=== PATIENT | female | born 1950 | race Caucasian/White ===

== ENCOUNTER 2019-11-27 15:25 | Outpatient (CLI) | payer OTHER, SELFPAY ==
--- NOTE | ~2019-11-27 | XR_ITS ---
EXAMINATION: XR ankle RT 2V DATE: 11/27/2019 15:54 INDICATION: Achilles tendinitis with tender bump at the right heel TECHNIQUE: Anteroposterior and lateral views of the right ankle were obtained. COMPARISON: None. FINDINGS: Alignment is normal. No fracture. Mild tibiotalar osteoarthritis. Moderate-sized retrocalcaneal spur. Soft tissue swelling at the calcaneal insertion of the distal Achilles tendon where there is an kenneth tional moderate-sized enthesophyte. No cortical erosions. No right ankle joint effusion. IMPRESSION: 1. Insertional enthesopathy and potentially and associated bursitis at the distal Achilles tendon wit h moderate sized Achilles calcaneal spur. Reviewed, dictated and finalized at location A. IMPRESSION: 1. Insertional enthesopathy and potentially and associated bursitis at the dist al Achilles tendon with moderate sized Achilles calcaneal spur.
== END 2019-11-27 15:26 | disposition home or self-care (01) ==
LOC: ANHIMG 15:36
PROVIDERS: PCP Emergency Medicine; Visit Provider Emergency Medicine
DX: M76.60 Achilles tendinitis, unspecified leg (principal)
CPT/HCPCS: 73600

== ENCOUNTER 2020-02-24 02:04 | Outpatient (CLI) | payer OTHER, SELFPAY ==
[2020-02-24 18:35] LABS: SARS-CoV-2 RNA PCR Negative
== END 2020-02-24 02:05 | disposition home or self-care (01) ==
LOC: ANHCOVIDDT 02:04
PROVIDERS: PCP Emergency Medicine; Visit Provider Orthopaedic Surgery
DX: Z01.812 Encounter for preprocedural laboratory examination (principal); Z20.828 Contact with and (suspected) exposure to other viral communicable diseases
CPT/HCPCS: 87635; C9803; U0003

== ENCOUNTER 2020-02-24 08:21 | Outpatient (CLI) | payer OTHER, SELFPAY ==
--- NOTE | 2020-02-24 08:22 | ECG_ITS ---
Measurements Intervals [place] Rate: 58 P: 74 GA: 200 QRS: 19 QRSD: 92 T: 30 QT: 418 QTc: 412 Interpretive Statements SINUS BRADYCARDIA LOW QRS VOLTAGE IN PRECORDIAL LEADS BORDERLINE ECG Electronically Signed On 02-24-2020 8:51:38 SUPERVISOR ASSEMBLY by Sachin Manriquez D.O.
== END 2020-02-24 08:22 | disposition home or self-care (01) ==
LOC: ANHSURGERY 08:22
PROVIDERS: PCP Emergency Medicine; Visit Provider Orthopaedic Surgery
DX: Z01.818 Encounter for other preprocedural examination (principal); I10 Essential (primary) hypertension; E55.9 Vitamin D deficiency, unspecified; E78.5 Hyperlipidemia, unspecified; R94.31 Abnormal electrocardiogram [ECG] [EKG]
CPT/HCPCS: 93005

== ENCOUNTER 2020-02-27 01:04 | Day surgery (SDC) | payer OTHER, SELFPAY ==
[2020-02-20 14:28] VITALS: BMI 32.8
[2020-02-27] VITALS (8 sets, daily range): BP systolic 115–153; BP diastolic 58–84; PULSE 56–75; RESP 13–20; TEMP 36.3; O2SAT 99–100
--- NOTE | ~2020-02-27 | XR_ITS ---
XR surgery orthopedic DATE: 02/27/2020 08:43 INDICATION: Right Achilles reconstruction TECHNIQUE: 2.9 seconds fluoroscopy time 0.19 mGy 3 spot C-arm images of the right ankle/hindfoot COMPARISON: 12/25/2019 right ankle FINDINGS: There is surgical resection of the posterior aspect of the right calcaneus including mobile lab technician ior calcaneal enthesopathy and distal Achilles tendon ossification. There is associated subcutaneous emphysema. Plantar calcaneal enthesopathy is again noted. IMPRESSION: Postoperative change of posterior calcaneus Reviewed, dictated and finalized at Location A. Reviewed, dictated and finalized at location B. PER BRUSH MAKER MACHINE
[2020-02-27] MEDS: LACTATED RINGERS 1,000 ML 30 ML IV CONT ×2 (06:28→09:20)
[2020-02-27] MEDS: ACETAMINOPHEN 500 MG TABLET 1000 MG PO (06:29)
[2020-02-27] MEDS: KETOROLAC 15 MG/ML VIAL (*BKC) IV PUSH (06:30)
--- NOTE | 2020-02-27 06:37 | WPDANESEPPF ---
Anes - Initial Pre Proc Eval Procedure: Operation Date: 02/27/20 07:30 Proposed Procedures p Right Achilles Reconstruction - Bret Cerna MD s Excision Calcaneal Exostosis - Bret Cerna MD Date/Time: 02/27/20 06:37 Surgeon: Bret Cerna MD Pre Op Diagnosis: right achilles tendinosis, right calcaneal exostos Patient Data Age: 69 Gender: F Height: 5 ft 8 in Weight: 99.3 kg Allergies Allergy/AdvReac Type Severity Reaction Status Date / Time Honey Bee Allergy Unknown SWELLING Uncoded 02/20/20 14:10 MEPERIDINE HCL AdvReac Severe PROJECTILE Uncoded 02/20/20 14:09 VOMITING Home Medications Medication Instructions Recorded Confirmed Type metoprolol tartrate 25 mg PO QAM 02/20/20 02/27/20 History iflcsjqv-moa-fkaur acid-ipt151 2 tablet PO DAILY 02/20/20 02/27/20 History [Alive Women's Gummy Vitamin] Patient hx anesthesia problems: none Family hx anesthesia problems: none PMFSH Past Medical History Medical History History of adverse reaction to anesthesia Posterior calcaneal exostosis Seasonal allergies Vitamin D deficiency disease Surgical History Surgical History History of rotator cuff surgery Family History Family History Other Diabetes mellitus Hypertension Social History Social History Smoking status: Never smoker Alcohol intake: never Living arrangements: with family Spiritual care concerns: No Anes - Eval Final PreProcedure Day of Procedure 02/27/20 06:37 Patient weight: obese Heart: regular rate and rhythm Lungs: clear to auscultation Airway: Mallampati scale class II Neurological: alert and oriented Last oral intake: >/= 8 hours ASA classification: II Emergent: no Anesthetic plan: proceed Anesthesia type and monitoring: general ETT and standard monitoring Informed Consent: The patient's anesthetic plan and its attendant risks and benefits were discussed with the patient/family/POA. Questions were solicited and answers provided to the satisfaction of the patient/family/POA.
--- NOTE | 2020-02-27 07:17 | WPDHPUPDATE1 ---
History and Physical Update Update Date/Time: 02/27/20 07:17 History and Physical has been reviewed, including an updated exam of the patient. There are NO changes in the patient's condition. Covid test negative. Risks, benefits, and alternatives have been discussed and questions answered. Patient agrees to proceed with procedure.
[2020-02-27] MEDS: ceFAZolin 2 GM/D5W 50 ML 2 GM/50 ML BAG IVPB (07:28)
[2020-02-27] MEDS: BUPIVACAINE HCL 0.5% PF 30 ML VIAL INFILTRATE (08:09)
--- NOTE | 2020-02-27 09:38 | P.OP_ITS ---
Procedure Note - Detailed Date of procedure: 02/27/20 Pre-op diagnosis: right achilles tendinosis, right calcaneal exostos Post-op diagnosis: same Procedure performed: Right Achilles tendon reconstruction, excision calcaneal exostosis Description of procedure: Indications: Patient is a 69 year old woman with insertional Achilles tendinitis and enlarged posterior calcaneal exostosis. Patient has failed conservative treatment with physical therapy, stretching regimen, bracing inserts. Activity modification medication have failed to relieve symptoms. Patient presents for operative treatment. What was done: Patient identified in the preoperative holding. Informed consent given. Operative extremity marked. Patient received intravenous antibiotics. Patient brought to the operating room where underwent general anesthetic by anesthesia team. Positioned prone on operating room table. Care taken to carefully secure and protect the head neck, and pad the bony prominences, and position the shoulders and arms. Time-out performed confirming the patient, site of the surgery and the plan. Right lower extremity prepped draped usual sterile surgical fashion using ChloraPrep skin solution. Foot and ankle exsanguinated and thigh tourniquet inflated to 250 mmHg. Direct posterior midline incision made with 15 blade knife over the distal Achilles tendon and posterior calcaneus. Hemostasis achieved with electrocautery. Full-thickness skin flaps developed medially and laterally including the paratenon over the Achilles tendon. Distal Achilles tendon noted to be degenerative with calcifications present. Fifteen blade knife used to release the Achilles tendon off the distal calcaneus with a midline split. Calcifications and degenerative portions sharply excised. Sufficient amount of normal Achilles tendon remaining for reconstruction. Osteotome used to resect the posterior calcaneal exostosis and osteophytes. Edges smoothed with a rongeur. Image intensification brought in and confirmed resection of the posterior exostosis. Wound thoroughly irrigated antibiotic solution. Retrocalcaneal bursa also sharply excised and bleeding points coagulated. Attention then turned to the Achilles tendon. Reconstruction achieved with the Arthrex Speed Bridge. 3.5 mm drill holes placed in posterior calcaneus and PushLock anchors placed with fiber tape. Fiber tape then delivered through the medial and lateral end of the Achilles tendon. Repair completed by passing the FiberTape ends through 4.75 mm SwiveLock anchors placed distal to the Achilles tendon insertion. Good repair noted. Midline split repaired with 0 Vicryl interrupted suture. Wound thoroughly irrigated antibiotic solution. Paratenon then repaired with 3 0 Monocryl running suture. Deep soft tissue repaired with 2 Vicryl interrupted suture. Skin approximated with 4 O nylon running suture. Sterile dressing applied. Bulky dressing and splint applied after releasing the tourniquet. The patient was then woken from anesthesia, extubated and taken to the recovery room in stable condition. All sponge, needle, instrument counts were correct at the end of the case. Implants: Arthrex suture bridge Anesthesia: GETA Surgeon: Bret Cerna MD Project Landscape Architect: 1st assistant branch operations manager Estimated blood loss (mL): 10 Tourniquet time (min): 73 Drains: No Packing: No Pathology: none sent Complications: None Condition: stable Disposition: PACU
== END 2020-02-27 11:03 | disposition home or self-care (01) ==
PROVIDERS: PCP Emergency Medicine; Visit Provider Orthopaedic Surgery
PROC: (CPT 27650; principal; 2020-02-27 07:30)
PROC: (CPT 28118; 2020-02-27 07:30)
DX: M76.61 Achilles tendinitis, right leg (principal); M77.31 Calcaneal spur, right foot; E55.9 Vitamin D deficiency, unspecified; E66.9 Obesity, unspecified; Z68.33 Body mass index [BMI] 33.0-33.9, adult
CPT/HCPCS: 28118; 27654; 87635; 93005; A9270; C1713; C9803; J0690; J1100; J1200; J1885; J2370; J2405; J2704; J3010; J7120; U0003

== ENCOUNTER 2022-04-19 17:04 | Outpatient (CLI) | payer OTHER, SELFPAY ==
--- NOTE | ~2022-04-19 | DEXA_ITS ---
Bone Density Report Name: TRACEY GUSTAFSNO Age: 71 Sex: Female Ethnicity: White Date of : 1950 Indication: postmenopausal; screening for osteoporosis; height loss; rheumatoid arthritis; Referring Provider: KRYSTINA FERRER Study: Bone densitometry was performed. Exam Date: April 19, 2022 Accession number: [id number] Bone Density: Region BMD T-score Z-score Classification AP Spine(L1-L4) 1.084 0.3 2.4 Normal Femoral Neck (Left) 0.747 -0.9 0.8 Normal Total Hip (Left) 1.024 0.7 2.1 Normal Femoral Neck (Right) 0.821 -0.3 1.5 Normal Total Hip (Right) 0.981 0.3 1.8 Normal Total Hip Mean 1.003 0.5 2.0 Normal World Health Organization criteria for BMD impression classify patients as: Normal (T-score at or above -1.0), Osteopenia (T-score between -1.0 and -2.5), or Osteoporosis (T-score at or below -2.5). 10-year Fracture Risk: FRAX not reported because: All T-scores for Spine Total, Hip Total, Femoral Neck at or above -1.0 Clinical Information Provided by Patient: Has rheumatoid arthritis Has used the following medications: Vitamin D Patient maximum height was 70 Menopause Age: 52 No regular weight bearing exercise Does not regularly consume dairy products Drinks caffeinated beverages Onset of menses at age 14 Number of children 2 Impression: The patient has normal bone mass. Discussion: BONE DENSITY IS ABOVE THE MINIMUM DESIRABLE LEVEL AT ALL SKELETAL SITES TESTED. This patient?s bone mineral density is above the minimum desirable level (T-score -1.0 or better) at all sites measured. The patient should follow a healthful lifestyle (good nutrition with adequate calcium and vitamin D, and appropriate weight-bearing exercise). Follow-Up: Consider repeating this study in 5 years or sooner if there is some new clinical indication. Reported by: BROCK on 04/19/2022 6:11:00 PM. Reviewed, dictated and finalized at location ALyndon RANDLE
--- NOTE | ~2022-04-19 | MM_ITS ---
EXAMINATION: MM screening rima BI w rosa HISTORY: Screening mammogram TECHNIQUE: Craniocaudal and mediolateral oblique 3-D tomosynthesis images were obtained and synthetic 2-D images were generated. CAD analysis was submitted and interpreted. COMPARISON: 04/06/2019, 11/24/2017 bilateral screening mammogram examinations BREAST PARENCHYMAL COMPOSITION: The breasts are almost entirely fatty. FINDINGS: There is no evidence of suspicious mass, calcification, or architectural distortion to sugg est malignancy in either breast. There has been no suspicious interval change. IMPRESSION: 1. No mammographic evidence of malignancy. 2. Recommend routine screening mammography in one year. BI-RADS Category 1: Negative Reviewed, dictated and finalized at location A. 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
== END 2022-04-19 17:05 | disposition home or self-care (01) ==
PROVIDERS: PCP Emergency Medicine; Visit Provider Emergency Medicine
DX: Z12.31 Encounter for screening mammogram for malignant neoplasm of breast (principal); Z78.0 Asymptomatic menopausal state
CPT/HCPCS: 77063; 77067; 77080

== ENCOUNTER 2022-05-03 10:16 | Emergency (ER) | payer OTHER, SELFPAY ==
--- NOTE | ~2022-05-03 | XR_ITS ---
XR finger 3rd RT min 2V 05/03/2022 10:50 Indication: Right third finger pain after recent fall Procedure: 4 views right third finger Comparison: No prior studies for comparison. Findings: Distal phalanx. Osteopenia. There is also an avulsion fragment from the tuft, age indetermi roland. Impression: 1: Age-indeterminate avulsion fractures involving the dorsal base and tuft of the right third distal phalanx. Correlate for point tenderness. Reviewed, dictated and finalized at location L. FORCING STEEL PLACER Impression: 1: Age-indeterminate avulsion fractures involving the dorsal base and tuft of t he right third distal phalanx. Correlate for point tenderness.
[2022-05-03 10:39] VITALS: BP 173/73; PULSE 69; RESP 16; TEMP 36.7; O2SAT 98
--- NOTE | 2022-05-03 11:01 | ED.UPPEXIN ---
HPI - Extremity Injury (Upper) General Chief Complaint: Extremity Injury, Upper Stated Complaint: right 3rd finger injury Time Seen by Provider: 05/03/22 11:01 Source: patient Mode of arrival: ambulatory Limitations: no limitations History of Present Illness HPI narrative: 71 yo F presents with c/o pain to R middle finger. pt states that she tripped yesterday after getting her hand tangled in blanket when getting up from her recliner. States she fell onto R side hitting her knee but knee is not painful today. States she must have hit her finger on something because it is very swollen and painful. distal NV intact. decreased ROM due to swelling. All systems reviewed and negative except as noted above. Related Data Home Medications Medication Instructions Recorded Confirmed psqnvyke-ahif-qvnth acid 200 2 tablet PO DAILY 02/20/20 05/03/22 mcg-herbal no.293 37.5 mg chewable tablet (Alive Women's Gummy Vitamin) Allergies Allergy/AdvReac Type Severity Reaction Status Date / Time Honey Bee Allergy Unknown SWELLING Uncoded 05/03/22 10:52 MEPERIDINE HCL AdvReac Severe PROJECTILE Uncoded 05/03/22 10:52 VOMITING Review of Systems Review of Systems: CONSTITUTIONAL: Denies fever, chills, or sweats. EYES: Denies visual changes, redness, or discharge. ENT: Denies rhinorrhea, congestion, sore throat, or otalgia. CARDIOVASCULAR: Denies chest pain, palpitations, or edema. RESPIRATORY: Denies cough or dyspnea. GASTROINTESTINAL: Denies abdominal pain, nausea, vomiting, or diarrhea. GENITOURINARY: Denies dysuria or hematuria. SKIN: Denies rash or itching. MUSCULOSKELETAL: Denies back pain, joint pain, or myalgia. Reports pain to right middle finger. NEUROLOGIC: Denies headache, numbness, or weakness. PSYCHIATRIC: Denies anxiety or depression. All other systems reviewed are negative, except as documented in HPI. [facility] Past Medical History Medical History History of adverse reaction to anesthesia Posterior calcaneal exostosis Seasonal allergies Vitamin D deficiency disease Surgical History Surgical History History of rotator cuff surgery Family History Family History Other Diabetes mellitus Hypertension Social History Social History (Updated 01/19/22 @ 10:26 by Paola Lynne MA) Smoking status: Smoker, status unknown Alcohol intake: never Substance use: unknown Living arrangements: with family Spiritual care concerns: No Comments At time of signature, agree with nursing past medical, surgical, social and family history. There is no relevant family history pertinent to the presenting complaint. Exam Narrative: GENERAL: This is a well-nourished, well-developed patient, in no apparent distress. HEAD: normocephalic, atraumatic. EYES: PERRL. Sclera clear/white. Vision is grossly intact. EARS: External ears normal NOSE: External nose normal NECK: Neck supple, non-tender without lymphadenopathy, masses or thyromegaly. CARDIOVASCULAR: Regular rate and rhythm without murmurs, gallops, or rubs. RESPIRATORY: Clear to auscultation. Breath sounds equal bilaterally. No wheezes, rales, or rhonchi. SKIN: warm, Dry, intact with no suspicious lesions or rash, good texture and turgor. NEURO: awake, alert, and oriented to person, place and time. There were no obvious focal neurologic abnormalities. EXTREMITIES: Swelling noted to right middle finger with bruising. Tenderness to right PIP, middle phalanx. Course Course Level of Care: Express Care Visit Vital Signs Vital signs: Vital Signs Temperature 36.7 C 05/03/22 10:39 Pulse Rate 69 05/03/22 10:39 Respiratory Rate 16 05/03/22 10:39 Blood Pressure 173/73 H 05/03/22 10:39 Pulse Oximetry 98 05/03/22 10:39 Oxygen Delivery Room Air 05/03/22 10:39
== END 2022-05-03 11:21 | disposition home or self-care (01) ==
PROVIDERS: Emergency Provider Nurse Practitioner Family; PCP Emergency Medicine
DX: S60.031A Contusion of right middle finger without damage to nail, initial encounter (principal); W01.0XXA Fall on same level from slipping, tripping and stumbling without subsequent striking against object, initial encounter
CPT/HCPCS: 29130; 73140; 99213; G0463

== ENCOUNTER 2023-05-04 20:34 | Emergency (ER) | payer OTHER, SELFPAY ==
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
[2023-05-04 20:36] VITALS: BP 159/81; PULSE 95; RESP 20; TEMP 35.9; O2SAT 99
[2023-05-04] MEDS: ACETAMINOPHEN 500 MG TABLET 1000 MG PO (23:20)
[2023-05-04] MEDS: CYCLOBENZAPRINE HCL 5 MG TABLET PO (23:20)
[2023-05-04] MEDS: KETOROLAC (*BKC) 60 MG/2 ML VIAL IM (23:20)
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
[2023-05-05 01:28] VITALS: BP 155/76; PULSE 78; RESP 18; O2SAT 97
== END 2023-05-05 01:38 | disposition home or self-care (01) ==
PROVIDERS: Emergency Provider Physician Assistant; PCP Emergency Medicine
DX: S46.911A Strain of unspecified muscle, fascia and tendon at shoulder and upper arm level, right arm, initial encounter (principal); S16.1XXA Strain of muscle, fascia and tendon at neck level, initial encounter; E55.9 Vitamin D deficiency, unspecified; M19.011 Primary osteoarthritis, right shoulder; M47.812 Spondylosis without myelopathy or radiculopathy, cervical region; V43.52XA Car driver injured in collision with other type car in traffic accident, initial encounter
CPT/HCPCS: 72125; 73030; 96372; 99284; A4565; A9270; J1885

== ENCOUNTER 2023-10-11 16:24 | Outpatient (CLI) | payer OTHER, SELFPAY ==
--- NOTE | ~2023-10-11 | MM_ITS ---
EXAMINATION: MM screening rima BI w rosa HISTORY: Screening TECHNIQUE: Craniocaudal and mediolateral oblique 3-D tomosynthesis images were obtained and synthetic 2-D images were generated. CAD analysis was submitted and interpreted. COMPARISON: Comparison to multiple prior studies sequentially, with oldest reviewed study dated 11/24. BREAST PARENCHYMAL COMPOSITION: Not Dense: The breasts are almost entirely fatty. FINDINGS: There is no evidence of suspicious mass, calcification, or architectural distortion to sugg est malignancy in either breast. There has been no suspicious interval change. IMPRESSION: 1. No mammographic evidence of malignancy. 2. Recommend routine screening mammography in one year. BI-RADS Category 1: Negative Reviewed, dictated and finalized at location B.
== END 2023-10-11 16:25 | disposition home or self-care (01) ==
LOC: ANHIMG 16:26
PROVIDERS: PCP Emergency Medicine; Visit Provider Emergency Medicine
DX: Z12.31 Encounter for screening mammogram for malignant neoplasm of breast (principal)
CPT/HCPCS: 77063; 77067

== ENCOUNTER 2024-05-06 05:49 | Observation (INO) | payer OTHER, SELFPAY ==
[2024-05-06] VITALS (38 sets, daily range): BP systolic 123–159; BP diastolic 63–110; PULSE 57–78; RESP 14–20; TEMP 36.5–36.6; O2SAT 93–99; BMI 35.5
--- NOTE | ~2024-05-06 | XR_ITS ---
Right Knee Technique: AP, lateral, and oblique views were obtained. Clinical History: Pain Findings: No fracture or dislocation is seen. Osseous alignment is anatomic. Joint spaces are preserv ed without degenerative or erosive change. Soft tissues are unremarkable. No joint effusion is seen. Impression: Unremarkable right knee radiographs. Reviewed, dictated and finalized at [facility]. HAND Impression: Unremarkable right knee radiographs.
--- NOTE | ~2024-05-06 | XR_ITS ---
EXAMINATION: XR hip RT 2V w AP pelvis DATE: 05/07/2024 11:55 INDICATION: Right knee pain. TECHNIQUE: An anteroposterior view of the pelvis and 2 views of right hip were obtained. COMPARISON: None. FINDINGS: There is lumbar dextrocurvature and mild spondylosis. No fracture. There is mild osteoarthr itis of the hips. IMPRESSION: 1. Mild osteoarthritis of the hips. Reviewed, dictated and finalized at location A. F SUPPLY CHAIN OFFICER
--- NOTE | ~2024-05-06 | MR_ITS ---
EXAMINATION: MR knee RT wo/w con DATE: 05/06/2024 20:22 INDICATION: Right knee pain TECHNIQUE: Magnetic resonance imaging (MRI) of the right knee was performed without intravenous contr ast. Sequences included axial PD-weighted FS FSE, coronal PD-weighted FSE and PD-weighted FS FSE, sag ittal PD-weighted FSE, and sagittal T2-weighted FS FSE. COMPARISON: CT right knee 05/06/2024; x-ray right knee 05/06/2024. FINDINGS: Medial compartment: Meniscus intact. Mild diffuse cartilage thinning and partial-thickness cartilage signal abnormality. 6 mm area of full-thickness cartilage loss on the tibial plateau. Mild osteophytosis. Lateral compartment: Meniscus intact. Mild diffuse cartilage thinning and partial-thickness signal abnormalities. Multifoc al areas of severe thinning with small focal cartilage caps and subchondral cyst formation anterior p ortion of the LFC. Mild osteophytosis. Patellofemoral compartment: Retinacula intact. Moderate diffuse cartilage thinning. Mild osteophytosis. Ligaments and tendons: The ACL, PCL, MCL, and LCL are intact. Remaining flexor and extensor tendons are intact. Fluid: Small volume joint fluid, with synovial thickening and enhancement. Small Jasmine's cyst with synovial thickening and enhancement. Osseous/other: No suspicious focal or diffuse marrow signal. No focal abnormal enhancing lesion. IMPRESSION: No internal derangement. Moderate tricompartmental osteoarthritis. Small joint effusion and Jasmine's cyst, with synovitis. Reviewed, dictated and finalized at location K. RATURE TEACHER
--- NOTE | ~2024-05-06 | US_ITS ---
EXAMINATION: US venous doppler [facility] DATE: 05/06/2024 19:08 INDICATION: Lower limb pain. TECHNIQUE: Grayscale images without and with compression and Doppler images of the bilateral lower ex tremity veins were obtained. COMPARISON: None FINDINGS: The right common femoral vein, profunda (deep) femoral vein, femoral vein, popliteal vein, peroneal v ein, posterior tibial veins, gastrocnemius vein, and greater saphenous vein are patent. The left common femoral vein, profunda (deep) femoral vein, femoral vein, popliteal vein, peroneal v ein, posterior tibial veins, gastrocnemius vein, and greater saphenous vein are patent. IMPRESSION: Patent bilateral lower extremity veins. No evidence of deep venous thrombosis. Reviewed, dictated and finalized at location K. CULTURAL AND FORESTRY SUPERVISOR
--- NOTE | ~2024-05-06 | CT_ITS ---
EXAMINATION: CT knee RT wo con DATE: 05/06/2024 07:39 INDICATION: Medial right knee pain. TECHNIQUE: Computed tomography (CT) of the right knee was performed without intravenous contrast. Aut omated exposure control and iterative reconstruction technique were employed. The dose-length product was 667.88 mGy-cm. COMPARISON: Right knee radiographs 05/06/2024 FINDINGS: Alignment is normal. No fracture. There is mild tricompartmental osteoarthritis. No knee chelita int effusion. IMPRESSION: 1. Mild right knee osteoarthritis. Reviewed, dictated and finalized at location [] HTS AND MEASURES INSPECTOR
--- OUTSIDE RECORDS SUMMARY | 2024-05-06 05:51 | XMS_ITS | Data Portability ---
[facility] Address [address] [place] [address] Assessment Encounter Date Assessment Date Assessment LastModified by Organization Details LastModified Time 11/22/2016 11/22/2016 Patient given Valery Ok phone number to set up free mammogram/pap screening exam. [email or web address] Not available 11/22/2016 12:24:00 Plan of Treatment Reminders Order Date Submit Date Provider Last Modified By Organization Details Last Modified Time Details Appointments None recorded. Lab hemoglobin , qualitativ e, stool by immunologi c method 2016 017 [place] Mele, 2022 Millie Orta, [address], [place], [address], 7 20:10:54 HbA1c (hemoglobi n A1c), blood 2016 017 ALEAH Shabazz, 2022 Millie Orta, [address], [place], [address], 7 06:13:32 CBC 2016 017 [place] Dawson, 2022 Millie Orta, [address], [place], [address], 7 06:13:31 CMP, serum or plasma 2016 017 [place] Dawson, 2022 Millie Orta, [address], [place], [address], 7 06:13:32 Referral None recorded. Procedures None recorded. Surgeries None recorded. Imaging None recorded. Medication Orders amlodipine 5 mg tablet 2016 017 INTERFACE [id number], [address] [place], [address], 7 11:11:07 amlodipine 5 mg tablet 2016 017 INTERFACE [id number], [address] [place], [address], 7 11:43:42 lisinopril 10 mg tablet 2016 017 amue [id number], [address] [place], [address], 7 12:23:02 Patient TargetsNo targets recorded. Patient Instructions Encounter Date Encounter Id Patient Instructions Last Modified By Organization Details Last Modified Time 10/17/2016 [id number] When You Want to Lose Weight: Care Instructions [email or web address] Not available 10/17/2016 16:04:02 A healthy lifestyle: care instructions [email or web address] Not available 10/17/2016 16:04:02 learning about high blood pressure [email or web address] Not available 10/17/2016 16:04:02 Reason for Referral None Reported. Results Created Date Observation Date Name Description Value Unit Range Abnormal Flag Note LastModifiedBy Organization Detail LastModifiedTime 10/18/19 17 10/18/2016 CBC WBC 6.3 x10e3 /uL 3.4-10 .8 Not Available [facility] ([facility]) [address] [facility], [place], [address], 10/18/2016 06:13:31 10/18/1910/18/2016 CBC RBC 4.88 x10e6 /uL 3.77-5 .28 Not Available [facility] ([facility]) [address] [facility], [place], [address], 10/18/2016 06:13:31 10/18/1910/18/2016 CBC hemoglobin 14.3 g/dL 11.1-1 5.9 Not Available [facility] ([facility]) [address] [place], [address], 10/18/2016 06:13:31 10/18/19 17 10/18/2016 CBC hematocrit 43.5 % 34.0-4 6.6 Not Available [facility] ([facility]) [address] [place], [address], 10/18/2016 06:13:31 10/18/19 17 10/18/2016 CBC MCV 89 fL 79-97 Not Available [facility] ([facility]) [address] [place], [address], 10/18/2016 06:13:31 10/18/1910/18/2016 CBC MCH 29.3 pg 26.6-3 3.0 Not Available [facility] ([facility]) [address] [place], [address], 10/18/2016 06:13:31 10/18/1910/18/2016 CBC MCHC 32.9 g/dL 31.5-3 5.7 Not Available [facility] ([facility]) [address] [place], [address], 10/18/2016 06:13:31 10/18/1910/18/2016 CBC RDW 14.3 % 12.3-1 5.4 Not Available [facility] ([facility]) [address] [place], [address], 10/18/2016 06:13:31 10/18/1910/18/2016 CBC platelets 282 x10e3 /uL 150-37 9 Not Available [facility] ([facility]) [address] [place], [address], 10/18/2016 06:13:31 10/18/1910/18/2016 CBC neutrophils 52 % Not Avai lable [facility] ([facility]) [address] [place], [address], 10/18/2016 06:13:31 10/18/1910/18/2016 CBC lymphs 39 % Not Available [facility] ([facility]) [address] [place], [address], 10/18/2016 06:13:31 10/18/1910/18/2016 CBC monocytes 7 % Not Availa ble [facility] ([facility]) [address] [place], [address], 10/18/2016 06:13:31 10/18/1910/18/2016 CBC eos 2 % Not Available [facility] ([facility]) [address] [place], [address], 10/18/2016 06:13:31 10/18/1910/18/2016 CBC basos 0 % Not Available [facility] ([facility]) [address] [place], [address], 10/18/2016 06:13:31 10/18/1910/18/2016 CBC immature cells 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 0 Not Available [facility] ([facility]) [address] [place], [address], 10/18/2016 06:13:31 10/18/1910/18/2016 CBC lymphs (absolute) 2.4 x10e3 /uL 0.7-3. 1 Not Available [facility] ([facility]) [address] [place], [address], 10/18/2016 06:13:31 10/18/19 17 10/18/2016 CBC monocytes(ab solute) 0.5 x10e3 /uL 0.1-0. 9 Not Available [facility] ([facility]) [address] [place], [address], 10/18/2016 06:13:31 10/18/1910/18/2016 CBC eos (absolute) 0.1 x10e3 /uL 0.0-0. 4 Not Available [facility] ([facility]) [address] [place], [address], 10/18/2016 06:13:31 10/18/1910/18/2016 CBC baso (absolute) 0.0 x10e3 /uL 0.0-0. 2 Not Available [facility] ([facility]) [address] [place], [address], 10/18/2016 06:13:31 10/18/1910/18/2016 CBC immature granulocytes 0 % Not Available [facility] [address] [facility] [place], [address], 10/18/2016 06:13:31 10/18/1910/18/2016 CBC immature grans (abs) 0.0 x10e3 /uL 0.0-0. 1 Not Available [facility] ([facility]) [address] [place], [address], 10/18/2016 06:13:31 10/18/1910/18/2016 CBC NRBC LOCOMOTIVE OPERATOR HELPER Not Available [facility] ([facility]) [address] [facility] [place], [address], 10/18/2016 06:13:31 10/18/1910/18/2016 CBC hematology comments: LOCOMOTIVE OPERATOR HELPER Not Available [facility] ([facility]) [address] [facility] [place], [address], 10/18/2016 06:13:31 10/18/1910/18/2016 CMP, serum or plasm a glucose, serum 93 mg/dL 65-99 Not Available [facility]) [address] [facility] [place], [address], 10/18/2016 06:13:32 10/18/19 17 10/18/2016 CMP, serum or plasm a BUN 11 mg/dL 8-27 Not Available [facility] ([facility]) [address] [facility] [place], [address], 10/18/2016 06:13:32 10/18/19 17 10/18/2016 CMP, serum or plasm a creatinine, serum 0.71 mg/dL 0.57-1 .00 Not Available [facility] ([facility]) [address] [facility] [place], [address], 10/18/2016 06:13:32 10/18/1910/18/2016 CMP, serum or plasm a eGFR if nonafricn AM 91 mL/mi n/1.7 3 >59 Not Available [facility] ([facility]) [address] [facility] [place], [address], 10/18/2016 06:13:32 10/18/1910/18/2016 CMP, serum or plasm a eGFR if africn AM 105 mL/mi n/1.7 3 >59 Not Available [facility] ([facility]) [address] [facility] [place], [address], 10/18/2016 06:13:32 10/18/19 17 10/18/2016 CMP, serum or plasm a BUN/creatini ne ratio 15 12-28 Not Available [facility]) [address] [facility] [place], [address], 10/18/2016 06:13:32 10/18/1910/18/2016 CMP, serum or plasm a sodium, serum 143 mmol/ L 134-14 4 Not Available [facility] ([facility]) [address] [facility] [place], [address], 10/18/2016 06:13:32 10/18/1910/18/2016 CMP, serum or plasm a potassium, serum 4.1 mmol/ L 3.5-5. 2 Not Available [facility] ([facility]) [address] [facility] [place], [address], 10/18/2016 06:13:32 10/18/1910/18/2016 CMP, serum or plasm a chloride, serum 104 mmol/ L 96-106 Not Available [facility] ([facility]) [address] [facility] [place], [address], 10/18/2016 06:13:32 10/18/1910/18/2016 CMP, serum or plasm a carbon dioxide, total 21 mmol/ L 18-29 Not Available [facility] [address] [facility] [place], [address], 10/18/2016 06:13:32 10/18/1910/18/2016 CMP, serum or plasm a calcium, serum 9.2 mg/dL 8.7-10 .3 Not Available [facility] ([facility]) [address] [facility] [place], [address], 10/18/2016 06:13:32 10/18/1910/18/2016 CMP, serum or plasm a protein, total, serum 7.3 g/dL 6.0-8. 5 Not Available [facility] ([facility]) [address] [facility] [place], [address], 10/18/2016 06:13:32 10/18/1910/18/2016 CMP, serum or plasm a albumin, serum 4.5 g/dL 3.6-4. 8 Not Available [facility] ([facility]) [address] [facility] [place], [address], 10/18/2016 06:13:32 10/18/1910/18/2016 CMP, serum or plasm a globulin, total 2.8 g/dL 1.5-4. 5 Not Available [facility] ([facility]) [address] [facility] [place], [address], 10/18/2016 06:13:32 10/18/1910/18/2016 CMP, serum or plasm a A/G ratio 1.6 1.2-2. 2 Not Available [facility] ([facility]) [address] [facility] [place], [address], 10/18/2016 06:13:32 10/18/1910/18/2016 CMP, serum or plasm a bilirubin, total 0.3 mg/dL 0.0-1. 2 Not Available [facility] ([facility]) [address] [facility] [place], [address], 10/18/2016 06:13:32 10/18/1910/18/2016 CMP, serum or plasm a alkaline phosphatase, S 102 IU/L 39-117 Not Available [facility]) [address] [place], [address], 10/18/2016 06:13:32 10/18/1910/18/2016 CMP, serum or plasm a AST (SGOT) 16 IU/L 0-40 Not Available [facility] ([facility]) [address] [place], [address], 10/18/2016 06:13:32 10/18/1910/18/2016 CMP, serum or plasm a ALT (SGPT) 23 IU/L 0-32 Not Available [facility] ([facility]) [address] [place], [address], 10/18/2016 06:13:32 10/18/1910/18/2016 HbA1c (hemo globi n A1c), blood hemoglobin A1C 5.7 % 4.8-5. 6 above high normal PRE-D IABET ES: 5.7 - 6.4 DIABE JOVI: >6.4 GLYCE BRYANT CONTR OL FOR ADULT S WITH DIABE JOVI: <7.0 Not Available [facility] ([facility]) [address] [place], [address], 10/18/2016 06:13:32 12/07/19 17 12/07/2016 hemog lobin , quali tativ e, stool by immun ologi scott metho d occult blood, fecal, ia Negati ve negati ve Not Available [facility] ([facility]) [address] [facility], [place], [address], 12/07/2016 20:10:54 Result Notes None recorded. Problems No Known Problems Procedures Surgical History Date Name Laterality Status Provider Name and Address Organization Details Recorded Time Back Surgery completed Diana Pineda CMA [facility] 10/17/2016 16:37:49 Tubal Ligation completed Diana stevenson CMA [facility] 10/17/2016 16:38:00 Dilation and Curettage completed Diana Pineda CMA [facility] 10/17/2016 16:38:11 Imaging Results None recorded. Procedure Notes None recorded. Medical Equipment None Reported. Allergies No known drug allergies Medications Name Sig Start Date Stop Date Status Note LastModified by Organization Details LastModified Time amlodipine 5 mg tablet TAKE 1 TABLET BY MOUTH EVERY DAY 018 active Not Available Not Available Not Avai lable lisinopril 10 mg tablet TAKE 1 TABLET BY MOUTH EVERY DAY 017 active Not Available Not Available Not Avai lable Vitals Date Recorded Body weight Body height Body mass index (BMI) Body temperature Oxygen saturation Oxygen saturation in Arterial blood by Pulse oximetry Heart rate Systolic blood pressure Diastolic blood pressure Provider Name and Address Organization Details Last Updated DateTime 7 079092. 61 g 171.45 cm 34.3 kg/m2 98.6 [degF] 98 % 98 % 94 /min 160 mm[Hg] 110 mm[Hg] Diana Pineda [facility] 7 15:01:08 Date Recorded Body height Body mass index (BMI) Body weight Heart rate Respiratory rate Body temperature Systolic blood pressure Diastolic blood pressure Provider Name and Address Organization Details Last Updated DateTime 7 171.45 cm 33.8 kg/m2 86118.7 3 g 88 /min 16 /min 98.1 [degF] 152 mm[Hg] 98 mm[Hg] Sandy Mccormick [facility] 7 11:20:14 Date Recorded Systolic blood pressure Diastolic blood pressure Provider Name and Address Organization Details Last Updated DateTime 11/22/2016 130 mm[Hg] 78 mm[Hg] LUCINDA Henley NP Attn: Accounting[address] [facility] [address], [place], [address], [facility] 11/22/2016 12:22:54 Date Recorded Body height Body mass index (BMI) Body weight Oxygen saturation Oxygen saturation in Arterial blood by Pulse oximetry Heart rate Body temperature Systolic blood pressure Diastolic blood pressure Provider Name and Address Organization Details Last Updated DateTime 7 171.45 cm 33.8 kg/m2 40066.7 3 g 96 % 96 % 83 /min 98.5 [degF] 130 mm[Hg] 80 mm[Hg] Diana Pineda CMA [facility] 7 10:49:11 Social History Question Answer Notes LastModified by Organizat ion Details LastModified Time Tobacco Smoking Status Never Smoker Diana Pineda CMA null, [facility] 10/17/2016 14:25:46 What Was The Date Of Your Most Recent Tobacco Screening? 12/06/2016 Information n ot available 10/04/2018 Sex: Unknown Functional Status None recorded. Mental Status None recorded. Family History Relationship Description Onset Age of this Age Resolved Age Notes LastModified by Organization Details LastModified Time Mother Diabetes mellitus [email or web address] Not available 2016 16:38:30 Mother Hypertensive disorder [email or web address] Not available 2016 16:38:43 Medical History Condition Response Coronary Artery Disease N Other N Atrial Fibrillation N High Blood Pressure Y Thyroid Problems N Kidney or Bladder Problems N Depression N COPD N Blood Clots N GI Problems N Skin Problems N Anemia N Heart Attack ([place]) N Diabetes N Anxiety Disorder N Muscle, Joint, or Bone Problems N Seizures/Epilepsy N Acid Reflux (GERD) N Cancer N Stroke N Allergies N Asthma N High Cholesterol N Hepatitis N Liver Disease N Headaches N Osteoporosis N Heart Failure N Gynecological HistoryNo gynecological history recorded. Obstetrics History GPAL:G 0 P 0 0 0 0 Past Encounters Encounter ID Performer Location Encounter Start Date Encounter Closed Date Diagnosis/Indication Diagnosis SNOMED-CT Code Diagnosis ICD10 Code Diagnosis Note [id number] LUCINDA Henley NP [facility] [address] [place] [address] 10/17/2016 14:08:37 10/17/2016 16:29:07 Essential hypertension 82227427 I10 Start lisinopril as directed. Obtain labs. Check BP at home and record. F/u 1 month Obesity 706517482 E66.9 Obtain lab [id number] LUCINDA Henley NP [facility] [address] [place] [address] 11/22/2016 11:00:14 11/23/2016 10:47:21 Essential hypertension 66846995 I10 d/c lisinopril . Start amlodipine as directed. F/u 2 weeks. check BP at home and record. [id number] LUCINDA Henley NP [facility] [address] [place] [address] 12/06/2016 10:38:03 12/06/2016 16:56:33 Essential hypertension 50900468 I10 continue amlodipine Screening for malignant neoplasm of colon 624637019 Z12.11 Health Concerns Section Related Observation LastModified by Organization Detai ls LastModified Time None Recorded Concern Status LastModified by Organization Details LastModified Time None Recorded Advance Directives Directive None Recorded Payers Encounter Date Sequence Insurance Name Policy Number Policy Cagle Covered Member ID Cagle Member ID Guarantor Name 10/17/2016 1 *SELF PAY* Alisia Espinoza 11/22/2016 1 *SELF PAY* Alisia Espinoza 12/06/2016 1 *SELF PAY* Alisia Espinoza Notes Date Note Type Note Provider Name and Address Organization Details Recorded Time 10/17/2016 text/html Patient presents today to establish care. States that she has a hx of elevated BP. Denies heart murmur, cholesterol issues. 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 Defers colonoscopy, had a normal one 10 yrs ago. Last pap smear and mammogram 4 yrs ago. Denies blurred vision, CP, SOB. LUCINDA Henley NP Attn: Accounting,[address] [facility], [place], [address], [facility] 10/21/2016 14:02:27 11/22/2016 text/html Patient presents today for blood pressure follow-up. States that she has been having a daily headache and feeling spacey ever since starting the lisinopril 10 mg daily. She has to repeat her DOT physical exam on Dec 30, 2016 and is nervous that her blood pressure will still be elevated. Reports it has been running 130/80's at home. She is sleeping well. Denies anxiety. LUCINDA Henley NP Attn: Accounting[address] [place], [address], [facility] 11/22/2016 12:24:12 12/06/2016 text/html Patient presents today for follow-up. Her blood pressure has been 130/80's. She has been feeling great on the medication. Denies headche, dizziness, shortness of breath, CP. LUCINDA Henley NP Attn: Accounting[address] [place], [address], [facility] 12/12/2016 11:47:10 OBGyn Episode No OBEpisode recorded.
--- OUTSIDE RECORDS SUMMARY | 2024-05-06 05:51 | XMS_ITS | Clinical Summary ---
Author Organization [facility] Address [address] [place] [address] Care Team Providers Care Procurement Director Name Role Phone Unavailable Primary Care Provider Unavailabl e Social History Tobacco Use Types Packs/Day Years Used Date Smoking Tobacco: Never Assessed Comments Unknown Sex and Gender Information Value Date Recorded Sex Assigned at Not on file Legal Sex Female 8:14 PM CDT Gender Identity Not on file Sexual Orientation Not on file Plan of Treatment Health Maintenance Due Date Last Done Comments Colorectal Cancer Screening Colonoscopy (10 Years) 1952 Hepatitis C 1970 DTaP, Tdap and Td Vaccines ( 1 - Tdap) 10/23/1971 Mammogram Screening 1992 Zoster Vaccines (1 of 2) 2002 Dexa Scan (General) 2017 Pneumococcal Vaccine: 65+ Ye ars (1 of 1 - PCV) 2017 COVID-19 Vaccine (2023-2 5 season) 2023 Influenza Adult (#1) 2023 RSV Immunization or 60+ Years (1 - 1-dose 75+ series) 10/23/2027 Meningococcal B Vaccine Aged Out No l onger eligible based on patient's age to complete this topic Meningococcal Vaccine Aged Out No sai jeanette eligible based on patient's age to complete this topic RSV Immunizations Under 20 Months Aged Out No longer eligible based on patient's age to complete this topic
--- NOTE | 2024-05-06 07:31 | ED_ITS ---
HPI - General Adult General Chief complaint: Extremity Injury, Lower Stated complaint: right leg and knee pain Time Seen by Provider: 05/06/24 06:53 History of Present Illness HPI narrative: 73-year-old female presenting to the emergency department for evaluation for right knee pain. Patient states the pain has been bothering her for approximately 1 week and is worsened with weight-bearing. Patient denies any specific incident injury. Patient feels the pain has been worsening. Patient describes pain that starts and the right medial knee and does radiate down with weight-bearing. Related Data Home Medications ?Medication ?Instructions ?Recorded ?Confirmed ?Last Taken ?Type ryuaofmx-eogv-gkubt acid 200 2 tablet PO DAILY 02/20/20 01/22/24 02/24/20 History mcg-herbal no.293 37.5 mg chewable tablet (Alive Women's Gummy Vitamin) Allergies Allergy/AdvReac Type Severity Reaction Status Date / Time meperidine AdvReac Severe Projectile Verified 05/06/24 09:17 Vomiting Honey Bee Allergy Unknown SWELLING Uncoded 05/06/24 06:42 Review of Systems 2 Review of Systems: All systems reviewed & are unremarkable except as noted in HPI and below PMFSH Past Medical History Medical History Cervical strain, acute Colitis Essential hypertension Fatigue History of adverse reaction to anesthesia Post-menopause Posterior calcaneal exostosis Right lower quadrant abdominal pain Seasonal allergies Vitamin D deficiency disease Surgical History Surgical History History of rotator cuff surgery Family History Family History Other Diabetes mellitus Hypertension Social History Social History Smoking status: Smoker, status unknown Alcohol intake: never Substance use: unknown Do You Feel Safe in your Home?: Yes Lack of Transportation: No Lack of Food: Never True Current Housing: I Have Housing Concerned About Future Housing: No Difficulty Paying Gas/Electric Bills: No Difficulty Paying for Meds: No Currently Unemployed: No Education: Associate Degree Difficulty w/ Childcare or Family Care: No Living arrangements: with family Spiritual care concerns: No Exam 2 Narrative: APPEARANCE: Well appearing, no pain, no distress, well-nourished. HEAD: normocephalic, atraumatic. EYES: PERRLA/EOMI, conjunctivae clear. NOSE: Normal no drainage EARS:TMS clear with good light reflex. THROAT: Pharynx clear, no exudate. NECK: Supple. No adenopathy, no masses. RESPIRATORY: Airway patent, respirations nonlabored. Clear to auscultation bilaterally, no rales, rhonchi, wheezing. CARDIOVASCULAR: Regular rate and rhythm without murmurs rubs or gallops. ABDOMINAL: Soft, nontender, nondistended, normal bowel sounds MUSCULOSKELETAL: Right medial knee tenderness to palpation, NEURO: Alert. Cranial nerves II through XII intact. Grossly intact SKIN: Warm, dry. Normal Color Course Vital Signs Vital signs: Vital Signs Temperature 97.8 F 05/06/24 05:50 Pulse Rate 68 05/06/24 05:50 Respiratory Rate 18 05/06/24 05:50 Blood Pressure 159/69 H 05/06/24 05:50 Pulse Oximetry 99 05/06/24 05:50 Oxygen Delivery Room Air 05/06/24 05:50 Temperature 97.8 F 05/06/24 05:50 Pulse Rate 59 L 05/06/24 13:46 Respiratory Rate 14 05/06/24 13:46 Blood Pressure 135/69 05/06/24 13:46 Pulse Oximetry 96 05/06/24 14:00 Oxygen Delivery Room Air 05/06/24 05:50 Medical Decision Making MDM Narrative Medical decision making narrative: 73-year-old female presented emergency department for evaluation for right medial knee pain. X-rays were negative for acute fracture dislocation. Due to the patient still having pain with weight-bearing CT scan was ordered. Patient was unable to ambulate after pain medication, with and without the knee immobilizer on the right. Case was discussed with hospitalist patient was accepted for admission. Orthopedics was consulted. MRI was ordered. PT OT and care coordination consult was also placed. Differential Diagnosis Differential Diagnosis: Internal derangement derangement of knee, tibial plateau fracture Vital Signs Vital Signs: Vital Signs Temperature 97.8 F 05/06/24 05:50 Pulse Rate 68 05/06/24 05:50 Respiratory Rate 18 05/06/24 05:50 Blood Pressure 159/69 H 05/06/24 05:50 Pulse Oximetry 99 05/06/24 05:50 Oxygen Delivery Room Air 05/06/24 05:50 Temperature 97.8 F 05/06/24 05:50 Pulse Rate 59 L 05/06/24 13:46 Respiratory Rate 14 05/06/24 13:46 Blood Pressure 135/69 05/06/24 13:46 Pulse Oximetry 96 05/06/24 14:00 Oxygen Delivery Room Air 05/06/24 05:50 Lab Data 05/06/24 15:46 05/06/24 15:46 Discharge Plan Discharge Clinical Impression: Acute pain of right knee Patient Disposition: Still a Patient Condition: Stable
--- OUTSIDE RECORDS SUMMARY | 2024-05-06 07:48 | XMS_ITS | Clinical Summary ---
Author Organization [facility] Address [address] [place] [address] Care Team Providers Care Icu Registered Nurse Name Role Phone Unavailable Primary Care Provider [...]
[2024-05-06] MEDS: HYDROcodone/acetaminophen (*CRX) 7.5-325 MG TABLET 1 TAB PO (09:17)
--- NOTE | 2024-05-06 13:45 | PM.IMHP ---
H&P: HPI History of Present Illness Date/Time: 05/06/24 13:45 Chief Complaint: right knee pain Narrative: 73-year-old female presenting to the emergency department for evaluation for right knee pain. Patient states the pain has been bothering her for approximately 1 week and is worsened with weight-bearing. Patient denies any specific incident injury. Patient feels the pain has been worsening. Patient describes pain that starts and the right medial knee and does radiate down with weight-bearing. Ordered labs including ESR,CRP,MRSA. MRI was ordered. X-rays were negative for acute fracture dislocation. Due to the patient still having pain with weight-bearing CT scan was ordered. Patient was unable to ambulate after pain medication, with and without the knee immobilizer on the right. Case was discussed with hospitalist patient was accepted for admission. Orthopedics was consulted. MRI was ordered. PT OT and care coordination consult was also placed. Examined the patient in ED. 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 Other than HTN no significant PMHx.Patient report she started having right knee which started a week ago. Prior to this no trauma,previous surgery or any other intervention in the right knee. Will order LE US to r/o dvt. Review of Systems Review of Systems: All systems reviewed & are unremarkable except as noted in HPI and below PMFSH Past Medical History Medical History Cervical strain, acute Colitis Essential hypertension Fatigue History of adverse reaction to anesthesia Post-menopause Posterior calcaneal exostosis Right lower quadrant abdominal pain Seasonal allergies Vitamin D deficiency disease Surgical History Surgical History History of rotator cuff surgery Family History Family History Other Diabetes mellitus Hypertension Social History Social History Smoking status: Smoker, status unknown Alcohol intake: never Substance use: unknown Do You Feel Safe in your Home?: Yes Lack of Transportation: No Lack of Food: Never True Current Housing: I Have Housing Concerned About Future Housing: No Difficulty Paying Gas/Electric Bills: No Difficulty Paying for Meds: No Currently Unemployed: No Education: Associate Degree Difficulty w/ Childcare or Family Care: No Living arrangements: with family Spiritual care concerns: No Meds Home Medications and Allergies Home Medications ?Medication ?Instructions ?Recorded ?Confirmed ?Type tjozdqhz-ktrk-jwjbr acid 200 2 tablet PO DAILY 02/20/20 01/22/24 History mcg-herbal no.293 37.5 mg chewable tablet (Alive Women's Gummy Vitamin) sumatriptan succinate 50 mg tablet See Rx Instructions PO .COMPLEX #9 07/07/21 01/22/24 Rx (Imitrex) tabs losartan 50 mg-hydrochlorothiazide See Rx Instructions .Route 10/13/23 01/22/24 Rx 12.5 mg tablet .COMPLEX #90 tabs metoprolol tartrate 50 mg tablet See Rx Instructions .Route 10/13/23 01/22/24 Rx .COMPLEX #90 tabs Allergies Allergy/AdvReac Type Severity Reaction Status Date / Time meperidine AdvReac Severe Projectile Verified 05/06/24 09:17 Vomiting Honey Bee Allergy Unknown SWELLING Uncoded 05/06/24 06:42 Vital Signs Vital Signs - 24 hr 05/06/24 05:50 05/06/24 06:02 05/06/24 07:36 Temperature 97.8 F Pulse Rate 68 Respiratory Rate 18 Blood Pressure 159/69 H 125/110 H Pulse Oximetry 99 98 96 Oxygen Delivery Room Air 05/06/24 07:45 05/06/24 08:00 05/06/24 08:15 Temperature Pulse Rate Respiratory Rate Blood Pressure Pulse Oximetry 97 96 97 Oxygen Delivery 05/06/24 08:30 05/06/24 08:45 05/06/24 09:00 Temperature Pulse Rate Respiratory Rate Blood Pressure Pulse Oximetry 97 97 97 Oxygen Delivery 05/06/24 09:14 05/06/24 09:15 05/06/24 09:16 Temperature Pulse Rate 64 57 L Respiratory Rate 16 18 Blood Pressure 133/97 H 133/71 Pulse Oximetry 97 96 98 Oxygen Delivery 05/06/24 09:30 05/06/24 09:45 05/06/24 10:00 Temperature Pulse Rate Respiratory Rate Blood Pressure Pulse Oximetry 98 98 93 Oxygen Delivery 05/06/24 10:01 05/06/24 10:15 05/06/24 10:30 Temperature Pulse Rate 60 Respiratory Rate 14 Blood Pressure 131/63 Pulse Oximetry 97 97 97 Oxygen Delivery 05/06/24 10:45 Temperature Pulse Rate Respiratory Rate Blood Pressure Pulse Oximetry 98 Oxygen Delivery Exam Narrative: APPEARANCE: Well appearing, no pain, no distress, well-nourished. HEAD: normocephalic, atraumatic. EYES: PERRLA/EOMI, conjunctivae clear. NOSE: Normal no drainage EARS:TMS clear with good light reflex. THROAT: Pharynx clear, no exudate. NECK: Supple. No adenopathy, no masses. RESPIRATORY: Airway patent, respirations nonlabored. Clear to auscultation bilaterally, no rales, rhonchi, wheezing. CARDIOVASCULAR: Regular rate and rhythm without murmurs rubs or gallops. ABDOMINAL: Soft, nontender, nondistended, normal bowel sounds MUSCULOSKELETAL: Right medial knee tenderness to palpation, NEURO: Alert. Cranial nerves II through XII intact. Grossly intact SKIN: Warm, dry. Normal Color Assessment and Plan Assessment and plan (1) Essential hypertension: Code(s): I10 - Essential (primary) hypertension Status: Acute Assessment and Plan: Pending med reconciliation (2) Right knee pain: Code(s): M25.561 - Pain in right knee Status: Acute Assessment and Plan: CT Knee; Mild right knee osteoarthritis. Knee X ray:Unremarkable right knee radiographs. Order ESR,CRP,ESR Ortho consulted No signs of septic arthritis R/O DVT Appreciate recs. Hospitalist MIPS Advance Care Plan I have confirmed that the patient's Advanced Care Plan is present, code status is documented, or surrogate decision maker is listed in patient medical record.: Yes Medication Reconciliation I have utilized all available resources to obtain, update and review the patients current medications (includes all prescriptions, OTC, herbals, cannabis, and nutritional supplements).: Yes
[2024-05-06 15:52] LABS: Hematocrit 39.6 % (37.0-47.0); Hemoglobin 13.3 g/dL (12.0-15.0); Mean Corpuscular HGB Conc 33.6 g/dl (32-36); Mean Corpuscular Volume 89.2 fl (80-100); Mean Platelet Volume 9.9 fl (7.4-10.4); Platelet Count Result 240 k/mm3 (150-375); Red Blood Count 4.44 M/mm3 (4.2-5.4); Red Cell Distribution Width 13.6 % (11.5-14.5); White Blood Count 7.5 K/mm3 (4.5-10.0)
[2024-05-06 16:13] LABS: Alanine Aminotransferase 29 U/L (6-35); Albumin Level 3.9 g/dL (3.5-5.1); Alkaline Phosphatase 74 U/L (38-126); Anion Gap 8 mmol/L (4-12); Aspartate Amino Transferase 25 U/L (14-36); Bilirubin,Total 0.6 mg/dL (0.2-1.3); Blood Urea Nitrogen 19 mg/dL (7-17); CRP < 0.5 mg/dL (<1.0); Carbon Dioxide 26 mmol/L (22-30); Chloride 104 mmol/L (98-107); Estimated CRCL calculation 85 ml/min; Estimated Glomerular Filt Rate > 60; Glucose 101 mg/dL (65-110); Potassium 3.9 mmol/L (3.4-5.0); Sodium 138 mmol/L (137-145)
[2024-05-06 16:34] LABS: Erythrocyte Sedimentation Rate 19 mm/hr (0-20)
[2024-05-06] MEDS: HYDROcodone/acetaminophen (*CRX) 5-325 MG TABLET 1 TAB PO ×2 (16:57→20:52)
--- NOTE | 2024-05-06 18:50 | PC.NURSE ---
This patient, Naatsha Espinoza, was admitted to [facility] Surg Room 314-01. Patient/family oriented to hospital policies and general routines including ID bracelet, bed and alarms, visiting hours, pain management, procedures, bathroom and other care routines, personal items, smoking policy, room service/diet, and visiting hours. Information on how to activate the Rapid Response Team has been discussed. Patient/Family are encouraged to report perceived risks to care and to ask questions if they do not understand what they are told or what they should do.
[2024-05-06] MEDS: LORazepam INJ (*CRX) 2 MG/ML VIAL 0.5 MG IV PUSH (19:21)
[2024-05-06 19:55] LABS: MRSA (PCR) NOT DETECTED (NOT DETECTE)
--- NOTE | 2024-05-06 22:05 | PC.NURSE ---
Patient came back to room from MRI via wheelchair. Patient was attempting to raise herself from wheelchair when right knee popped with excruciating pain upon the pop. Patient was maris stedied back to bed and give a norco. Patient is now requesting something more for pain.
[2024-05-06] MEDS: MORPHINE SULFATE (*CRX) 2 MG/ML INJ IV PUSH (22:51)
[2024-05-07] MEDS: HYDROcodone/acetaminophen (*CRX) 5-325 MG TABLET 1 TAB PO ×2 (01:51→06:33)
[2024-05-07 06:00] VITALS: BP 137/72; PULSE 65; RESP 18; TEMP 36.2; O2SAT 98
--- NOTE | 2024-05-07 08:56 | PM.IMPN ---
Progress Note: A&P Assessment and Plan (1) Essential hypertension: Code(s): I10 - Essential (primary) hypertension Status: Acute Assessment and Plan: Pending med reconciliation (2) Right knee pain: Code(s): M25.561 - Pain in right knee Status: Acute Assessment and Plan: CT Knee:Mild right knee osteoarthritis. Knee X ray:Unremarkable right knee radiographs. Knee MRI: No internal derangement.Moderate tricompartmental osteoarthritis.Small joint effusion and Jasmine's cyst, with synovitis. ESR,CRP are normal Ortho consulted and received steroid inj No signs of septic arthritis No evidence of DVT Appreciate recs. Subjective Date/time seen: 05/07/24 08:56 Interval history: Patient hip x-ray and pelvis was normal. Patient received knee steroid injection this late afternoon. Will stay tonight and possible discharge tomorrow. Review of Systems Review of Systems: All systems reviewed & are unremarkable except as noted in HPI and below Exam Narrative: APPEARANCE: Well appearing, no pain, no distress, well-nourished. HEAD: normocephalic, atraumatic. EYES: PERRLA/EOMI, conjunctivae clear. NOSE: Normal no drainage EARS:TMS clear with good light reflex. THROAT: Pharynx clear, no exudate. NECK: Supple. No adenopathy, no masses. RESPIRATORY: Airway patent, respirations nonlabored. Clear to auscultation bilaterally, no rales, rhonchi, wheezing. CARDIOVASCULAR: Regular rate and rhythm without murmurs rubs or gallops. ABDOMINAL: Soft, nontender, nondistended, normal bowel sounds MUSCULOSKELETAL: Right medial knee tenderness to palpation, NEURO: Alert. Cranial nerves II through XII intact. Grossly intact SKIN: Warm, dry. Normal Color Const: General: cooperative Orientation/consciousness: patient oriented x3 Limitations: no limitations HENMT: Head: normal to inspection Ears: hearing grossly normal bilaterally Face/Nose/Sinus: Normal external nose present Mouth: Yes moist mucous membranes Eyes: General: appearance normal, both eyes and all related structures Pupils: Equal, round and reactive pupils present EOM: EOMs intact bilaterally Neck: Neck: normal visual inspection Chest: Chest palpation & inspection: normal inspection of the chest Resp: Effort & Inspection: normal respiratory effort and able to speak in complete sentences Neuro: General: patient oriented x3 Cranial nerves: Yes Equal, round and reactive pupils present Extrem: General: normal to inspection, capillary refill normal, no calf tenderness and abnormal gait (antalgic ) Right upper extremity: normal to inspection Left upper extremity: normal to inspection Right lower extremity: normal to inspection, normal capillary refill and knee Details: normal to inspection, tenderness Location: of the medial joint line and of the lateral joint line, swelling (no joint effusion noted ), abnormal ROM Details: pain with active ROM during Details: in extension and in flexion, pain with passive ROM during Details: in extension and in flexion and with range as follows (5-90 degrees AROM. PROM limited by pain ), knee ligament exam normal and Omaira's Test Details: positive medially and laterally; no ecchymosis and no unusual warmth Left lower extremity: normal to inspection, normal capillary refill and knee Details: normal to inspection, normal ROM, knee ligament exam normal and Omaira's Test (negative ); no tenderness and no swelling Objective Data Vital Signs Vital Signs: Vital Signs - 24 hr 05/06/24 09:00 05/06/24 09:14 05/06/24 09:15 Temperature Pulse Rate 64 Respiratory Rate 16 Blood Pressure 133/97 H Pulse Oximetry 97 97 96 Oxygen Delivery 05/06/24 09:16 05/06/24 09:30 05/06/24 09:45 Temperature Pulse Rate 57 L Respiratory Rate 18 Blood Pressure 133/71 Pulse Oximetry 98 98 98 Oxygen Delivery 05/06/24 10:00 05/06/24 10:01 05/06/24 10:15 Temperature Pulse Rate 60 Respiratory Rate 14 Blood Pressure 131/63 Pulse Oximetry 93 97 97 Oxygen Delivery 05/06/24 10:30 05/06/24 10:45 05/06/24 11:00 Temperature Pulse Rate Respiratory Rate Blood Pressure Pulse Oximetry 97 98 96 Oxygen Delivery 05/06/24 11:15 05/06/24 11:30 05/06/24 11:31 Temperature Pulse Rate 68 Respiratory Rate 16 Blood Pressure 133/72 Pulse Oximetry 96 94 94 Oxygen Delivery 05/06/24 11:45 05/06/24 12:00 05/06/24 12:15 Temperature Pulse Rate Respiratory Rate Blood Pressure Pulse Oximetry 97 96 95 Oxygen Delivery 05/06/24 12:16 05/06/24 12:30 05/06/24 12:45 Temperature Pulse Rate Respiratory Rate Blood Pressure Pulse Oximetry 98 97 98 Oxygen Delivery 05/06/24 13:00 05/06/24 13:02 05/06/24 13:15 Temperature Pulse Rate 63 Respiratory Rate Blood Pressure 151/70 H Pulse Oximetry 95 97 97 Oxygen Delivery 05/06/24 13:30 05/06/24 13:45 05/06/24 13:46 Temperature Pulse Rate 59 L Respiratory Rate 14 Blood Pressure 135/69 Pulse Oximetry 96 93 96 Oxygen Delivery 05/06/24 14:00 05/06/24 20:00 05/06/24 22:00 Temperature 97.7 F Pulse Rate 59 L 78 Respiratory Rate 14 20 Blood Pressure 123/73 Pulse Oximetry 96 96 99 Oxygen Delivery Room Air 05/07/24 06:00 Temperature 97.2 F L Pulse Rate 65 Respiratory Rate 18 Blood Pressure 137/72 Pulse Oximetry 98 Oxygen Delivery Intake/Output Intake/Output: Intake & Output 05/04/24 05/05/24 05/06/24 05/07/24 23:59 23:59 23:59 23:59 Intake Total 490 200 Output Total 200 Balance 490 0 Meds/Results Medications: Active Medications Generic Name Dose Route Start Last Admin Trade Name Freq PRN Reason Stop Dose Admin Hydrocodone Bitart/Acetaminophen 1 tab 05/06/24 10:52 05/07/24 06:33 Hydrocodone/Acetaminophen (*Crx) 5-325 Mg Tablet PO 1 tab Q4H PRN Administration Pain Rated 4-6 Enoxaparin Sodium 40 mg 05/07/24 09:00 Enoxaparin 40 Mg/0.4 Ml Syringe SUB-Q DAILY SURYA Radiology Results: ITS Impressions Knee X-Ray 05/06/24 06:48 Impression: Unremarkable right knee radiographs. Knee CT 05/06/24 08:07 IMPRESSION: 1. Mild right knee osteoarthritis. Venous Doppler Study 05/06/24 20:00 IMPRESSION: Patent bilateral lower extremity veins. No evidence of deep venous thrombosis. Knee MRI 05/06/24 21:20 IMPRESSION: No internal derangement. Moderate tricompartmental osteoarthritis. Small joint effusion and Jasmine's cyst, with synovitis. Labs Labs: Laboratory Results - last 24 hr 05/06/24 05/06/24 15:46 18:23 WBC 7.5 RBC 4.44 Hgb 13.3 Hct 39.6 MCV 89.2 MCH 30.0 MCHC 33.6 RDW 13.6 Plt Count 240 MPV 9.9 ESR 19 Sodium 138 Potassium 3.9 Chloride 104 Carbon Dioxide 26 Anion Gap 8 BUN 19 H Creatinine 0.64 L Estim Creat Clear Calc 85 Estimated GFR > 60 Glucose 101 Calcium 9.0 Total Bilirubin 0.6 AST 25 ALT 29 Alkaline Phosphatase 74 C-Reactive Protein < 0.5 Total Protein 7.0 Albumin 3.9 Nasal MRSA (PCR) Not detected Hospitalist MIPS Advance Care Plan I have confirmed that the patient's Advanced Care Plan is present, code status is documented, or surrogate decision maker is listed in patient medical record.: Yes Medication Reconciliation I have utilized all available resources to obtain, update and review the patients current medications (includes all prescriptions, OTC, herbals, cannabis, and nutritional supplements).: Yes
[2024-05-07 09:59] LABS: Uric Acid 6.2 mg/dL (2.5-7.5)
--- NOTE | 2024-05-07 10:07 | P.CONOP_ITS ---
Assessment and Plan Assessment and plan (1) Degenerative joint disease of knee: Qualifiers: Osteoarthritis type: primary Laterality: right Qualified Code(s): M 17.11 - Unilateral primary osteoarthritis, right knee Code(s): M17.9 - Osteoarthritis of knee, unspecified Status: Acute Assessment and Plan: 1 week history of right knee pain, no known injury. Radiographs of the right knee reveal no evidence of fracture, dislocation or acute abnormalities. CT scan of the right knee reveals mild tricompartmental OA, no evidence of fracture. Doppler of the b/l LE reveals no evidence of DVT. MRI reveals moderate tricompartmental osteoarthritis, a small joint effusion and Jasmine's cyst. No internal derangement. Given all imaging is negative for acute injury, recommend Uric Acid levels and aspiration/possible injection with cortisone for pain control. PT/OT with WBAT. Obtain consent for aspiration/injection. Will determine further plan of care pending procedure. Plan Reviewed history, exam, radiographs and current labs with attending MD and covering surgeon, Dr. Dawson, who agrees with current plan as indicated above. No further recommendations from Dr. Dawson at this time. History of Present Illness HPI Consult date: 05/07/24 Chief complaint: inability to bear weight on right knee Narrative: 73 year old female presents to the ER with acute right knee pain which initially began x1 week ago with gradual progression preventing her from bearing weight on the RLE. Inability to control pain in the ED resulting in admission for further work up and orthopedic consult. 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 Denies any known injury. Initial radiographs (NWB) in the ED reveal no evidence of acute abnormalities. Patient admitted for further work up. Review of Systems 2 Review of Systems: All systems reviewed & are unremarkable except as noted in HPI and below PMFSH Past Medical History Medical History Degenerative joint disease of knee Fatigue Right lower quadrant abdominal pain Post-menopause Essential hypertension Colitis Cervical strain, acute Posterior calcaneal exostosis History of adverse reaction to anesthesia Seasonal allergies Vitamin D deficiency disease Surgical History Surgical History History of rotator cuff surgery Family History Family History Other Diabetes mellitus Hypertension Social History Social History Smoking status: Never smoker Alcohol intake: never Substance use: never Substance use type: does not use Do You Feel Safe in your Home?: Yes Lack of Transportation: No Lack of Food: Never True Current Housing: I Have Housing Concerned About Future Housing: No Difficulty Paying Gas/Electric Bills: No Difficulty Paying for Meds: No Currently Unemployed: No Education: Associate Degree Difficulty w/ Childcare or Family Care: No Living arrangements: with family Spiritual care concerns: No Meds Home Medications and Allergies Home Medications ?Medication ?Instructions ?Recorded ?Confirmed ?Type jopnrtec-uxor-rcwov acid 200 2 tablet PO DAILY 02/20/20 05/06/24 History mcg-herbal no.293 37.5 mg chewable tablet (Alive Women's Gummy Vitamin) sumatriptan succinate 50 mg tablet See Rx Instructions PO .COMPLEX #9 07/07/21 05/06/24 Rx (Imitrex) tabs losartan 50 mg-hydrochlorothiazide See Rx Instructions .Route 10/13/23 05/06/24 Rx 12.5 mg tablet .COMPLEX #90 tabs metoprolol tartrate 50 mg tablet See Rx Instructions .Route 10/13/23 05/06/24 Rx .COMPLEX #90 tabs Allergies Allergy/AdvReac Type Severity Reaction Status Date / Time meperidine AdvReac Severe Projectile Verified 05/06/24 09:17 Vomiting Honey Bee Allergy Unknown SWELLING Uncoded 05/06/24 06:42 Vital Signs Vital Signs - 24 hr 05/06/24 10:15 05/06/24 10:30 05/06/24 10:45 Temperature Pulse Rate Respiratory Rate Blood Pressure Pulse Oximetry 97 97 98 Oxygen Delivery 05/06/24 11:00 05/06/24 11:15 05/06/24 11:30 Temperature Pulse Rate Respiratory Rate Blood Pressure Pulse Oximetry 96 96 94 Oxygen Delivery 05/06/24 11:31 05/06/24 11:45 05/06/24 12:00 Temperature Pulse Rate 68 Respiratory Rate 16 Blood Pressure 133/72 Pulse Oximetry 94 97 96 Oxygen Delivery 05/06/24 12:15 05/06/24 12:16 05/06/24 12:30 Temperature Pulse Rate Respiratory Rate Blood Pressure Pulse Oximetry 95 98 97 Oxygen Delivery 05/06/24 12:45 05/06/24 13:00 05/06/24 13:02 Temperature Pulse Rate 63 Respiratory Rate Blood Pressure 151/70 H Pulse Oximetry 98 95 97 Oxygen Delivery 05/06/24 13:15 05/06/24 13:30 05/06/24 13:45 Temperature Pulse Rate Respiratory Rate Blood Pressure Pulse Oximetry 97 96 93 Oxygen Delivery 05/06/24 13:46 05/06/24 14:00 05/06/24 20:00 Temperature Pulse Rate 59 L 59 L Respiratory Rate 14 14 Blood Pressure 135/69 Pulse Oximetry 96 96 96 Oxygen Delivery Room Air 05/06/24 22:00 05/07/24 06:00 Temperature 36.5 C 36.2 C L Pulse Rate 78 65 Respiratory Rate 20 18 Blood Pressure 123/73 137/72 Pulse Oximetry 99 98 Oxygen Delivery Exam 2 Const: General: cooperative Orientation/consciousness: patient oriented x3 Limitations: no limitations HENMT: Head: normal to inspection Ears: hearing grossly normal bilaterally Face/Nose/Sinus: Normal external nose present Mouth: Yes moist mucous membranes Eyes: General: appearance normal, both eyes and all related structures P upils: Equal, round and reactive pupils present EOM: EOMs intact bilaterally Neck: Neck: normal visual inspection Chest: Chest palpation & inspection: normal inspection of the chest Resp: Effort & Inspection: normal respiratory effort and able to speak in complete sentences Neuro: General: patient oriented x3 Cranial nerves: Yes Equal, round and reactive pupils present Extrem: General: normal to inspection, capillary refill normal, no calf tenderness and abnormal gait (antalgic ) Right upper extremity: normal to inspection Left upper extremity: normal to inspection Right lower extremity: normal to inspection, normal capillary refill and knee Details: normal to inspection, tenderness Location: of the medial joint line and of the lateral joint line, swelling (no joint effusion noted ), abnormal ROM Details: pain with active ROM during Details: in extension and in flexion, pain with passive ROM during Details: in extension and in flexion and with range as follows (5-90 degrees AROM. PROM limited by pain ), knee ligament exam normal and Omaira's Test Details: positive medially and laterally; no ecchymosis and no unusual warmth Left lower extremity: normal to inspection, normal capillary refill and knee Details: normal to inspection, normal ROM, knee ligament exam normal and Omaira's Test (negative ); no tenderness and no swelling Results Labs 05/06/24 15:46 05/06/24 15:46 Labs: Abnormal lab results 05/06/24 Range/Units 15:46 BUN 19 H (7-17) mg/dL Creatinine 0.64 L (0.7-1.0) mg/dL H & H 05/06/24 Range/Units 15:46 Hgb 13.3 (12.0-15.0) g/dL Hct 39.6 (37.0-47.0) % All other labs normal.
--- NOTE | 2024-05-07 13:22 | P.OPB_ITS ---
Procedure Note - Brief Procedure Note - Brief Date of procedure: 05/07/24 inability to bear weight on right knee Post-op diagnosis: Same Procedure performed: Right Knee Aspiration/Injection Surgeon: ARNULFO Davenport Cement Crusher Operator: n/a Anesthesia: local Findings: Right knee prepped, local anesthetic. Aspiration performed. 5mL of ss fluid aspirated from the right knee. Injection performed, tolerated well. Post injection instructions dispensed. Moderate right knee joint effusion noted on exam. Discussed condition, nature, etiology and course of natural history. Conservative treatment options reviewed. Recommended aspiration prior to injection. Aspiration performed under sterile conditions. Aspirate serosanguineous in nature. No signs of infection. Joint without erythema. Cortisone injection performed. Recommended use of neoprene knee sleeve. The risks of injection were reviewed including but not limited to skin color changes, atrophy of the soft tissue, tendon or soft tissue rupture, joint degeneration, hyper inflammatory response, allergic reaction, continued pain or dysfunction. Specific risks of the procedure including deep infection or soft tissue rupture or recurrence of symptoms reviewed. No guarantees were offered. The patient understands the need for possible further treatment. Description of procedure: Right knee Aspiration/Injection Implants: n/a Estimated blood loss (mL): 0 Total Tourniquet Time: 0 IV fluids (mL): 0 Urine output (mL): 0 Drains: No Packing: No Pathology: None sent Complications: No immediate complications Condition: Stable Disposition: Floor Joint Aspiration & Injection Pre-Procedure Pre-procedure care: Consent was obtained, Procedures/risks were explained, Questions were answered, Correct patient identified and Correct side and site confirmed Post Procedure Patient tolerated the procedure well?: Tolerated procedure well Position Position: Laying Location: right Site Prepped Technique: aseptic technique with povidone-iodine Anesthetic: lidocaine 1% plain Fluid: Serosanguinous Fluid Withdrawn (mL): 5 Sterile Dressing Sterile Dressing: Adhesive KNEE Knee Procedure: lateral supratellar pouch Manual palpation and intra-articular area Manual palpation
[2024-05-07 14:00] VITALS: BP 129/70; PULSE 72; RESP 18; TEMP 36.2; O2SAT 97
[2024-05-07 20:00] VITALS: PULSE 86; RESP 20; O2SAT 98
[2024-05-07 21:36] VITALS: BP 141/88; PULSE 86; RESP 20; TEMP 36.9; O2SAT 98
[2024-05-08 06:00] VITALS: BP 130/77; PULSE 79; RESP 18; TEMP 36.4; O2SAT 95
[2024-05-08] MEDS: LOSARTAN POTASSIUM 50 MG TABLET PO (08:26)
[2024-05-08] MEDS: METOPROLOL TARTRATE 50 MG TAB PO (08:26)
[2024-05-08] MEDS: hydroCHLOROthiazide 12.5 MG CAPSULE PO (08:26)
[2024-05-08] MEDS: ENOXAPARIN 40 MG/0.4 ML SYRINGE SUB-Q (08:26)
--- NOTE | 2024-05-08 09:50 | P.DS_ITS ---
DS: Admitting Diagnosis Discharge Date 05/08/2024 Admitting Diagnosis Right knee pain DS: Discharge Diagnosis Discharge Diagnosis (1) Essential hypertension: Code(s): I10 - Essential (primary) hypertension Status: Acute (2) Right knee pain: Code(s): M25.561 - Pain in right knee Status: Acute Assessment and Plan: CT Knee:Mild right knee osteoarthritis. Knee X ray:Unremarkable right knee radiographs. Knee MRI: No internal derangement.Moderate tricompartmental osteoarthritis.Small joint effusion and Jasmine's cyst, with synovitis. ESR,CRP and uric are normal Ortho consulted and received aspiration/possible injection with cortisone for pain control. No signs of septic arthritis No evidence of DVT DS: Summary Hospital Course Hospital Course: 73-year-old female presenting to the emergency department for evaluation for r ight knee pain. Patient states the pain has been bothering her for approximately 1 week and is worsened with weight-bearing. Patient denies any specific incident injury. Patient feels the pain has been worsening. Patient describes pain that starts and the right medial knee and does radiate down with weight-bearing. Ordered labs including ESR,CRP,MRSA. MRI was ordered. X-rays were negative for acute fracture dislocation. Due to the patient still having pain with weight- bearing CT scan was ordered. Patient was unable to ambulate after pain medication, with and without the knee immobilizer on the right. Case was discussed with hospitalist patient was accepted for admission. Orthopedics was consulted. MRI was ordered. PT OT and care coordination consult was also placed. Examined the patient in ED. 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 Other than HTN no significant PMHx.Patient report she started having right knee which started a week ago. Prior to this no trauma,previous surgery or any other intervention in the right knee. Will order LE US to r/o dvt. Ortho evaluated the patient and performed aspiration/possible injection with cortisone for pain control.Advised to follow up the results of the aspiration with Ortho. CT Knee:Mild right knee osteoarthritis. Knee X ray:Unremarkable right knee radiographs. Knee MRI: No internal derangement.Moderate tricompartmental osteoarthritis.Small joint effusion and Jasmine's cyst, with synovitis. ESR,CRP and uric are normal Ortho consulted and received aspiration/possible injection with cortisone for pain control. No signs of septic arthritis No evidence of DVT PT/OT with WBAT. Time Spent with Patient Time attestation: Total time spent providing and/or coordinating discharge services: Exam Narrative: APPEARANCE: Well appearing, no pain, no distress, well-nourished. HEAD: normocephalic, atraumatic. EYES: PERRLA/EOMI, conjunctivae clear. NOSE: Normal no drainage EARS:TMS clear with good light reflex. THROAT: Pharynx clear, no exudate. NECK: Supple. No adenopathy, no masses. RESPIRATORY: Airway patent, respirations nonlabored. Clear to auscultation bilaterally, no rales, rhonchi, wheezing. CARDIOVASCULAR: Regular rate and rhythm without murmurs rubs or gallops. ABDOMINAL: Soft, nontender, nondistended, normal bowel sounds MUSCULOSKELETAL: Right medial knee tenderness to palpation, NEURO: Alert. Cranial nerves II through XII intact. Grossly intact SKIN: Warm, dry. Normal Color Const: General: cooperative Orientation/consciousness: patient oriented x3 Limitations: no limitations HENMT: Head: normal to inspection Ears: hearing grossly normal bilaterally Face/Nose/Sinus: Normal external nose present Mouth: Yes moist mucous membranes Eyes: General: appearance normal, both eyes and all related structures Pupils: Equal, round and reactive pupils present EOM: EOMs intact bilaterally Neck: Neck: normal visual inspection Chest: Chest palpation & inspection: normal inspection of the chest Resp: Effort & Inspection: normal respiratory effort and able to speak in complete sentences Neuro: General: patient oriented x3 Cranial nerves: Yes Equal, round and reactive pupils present Extrem: General: normal to inspection, capillary refill normal, no calf tenderness and abnormal gait (antalgic ) Right upper extremity: normal to inspection Left upper extremity: normal to inspection Right lower extremity: normal to inspection, normal capillary refill and knee Details: normal to inspection, tenderness Location: of the medial joint line and of the lateral joint line, swelling (no joint effusion noted ), abnormal ROM Details: pain with active ROM during Details: in extension and in flexion, pain with passive ROM during Details: in extension and in flexion and with range as follows (5-90 degrees AROM. PROM limited by pain ), knee ligament exam normal and Omaira's Test Details: positive medially and laterally; no ecchymosis and no unusual warmth Left lower extremity: normal to inspection, normal capillary refill and knee Details: normal to inspection, normal ROM, knee ligament exam normal and Omaira's Test (negative ); no tenderness and no swelling DS: Data Data Completed and Pending Labs on day of discharge: Labs from last 24 hours 05/07/24 09:26 Uric Acid 6.2 Imaging Radiologist's impression: ITS Impressions Knee X-Ray 05/06/24 06:48 Impression: Unremarkable right knee radiographs. Knee CT 05/06/24 08:07 IMPRESSION: 1. Mild right knee osteoarthritis. Venous Doppler Study 05/06/24 20:00 IMPRESSION: Patent bilateral lower extremity veins. No evidence of deep venous thrombosis. Knee MRI 05/06/24 21:20 IMPRESSION: No internal derangement. Moderate tricompartmental osteoarthritis. Small joint effusion and Jasmine's cyst, with synovitis. Hip/Pelvis X-Ray 05/07/24 12:00 IMPRESSION: 1. Mild osteoarthritis of the hips. Discharge Plan Discharge Attending physician on discharge: Jose Eduardo Ty Consulting providers: Baudilio Dawson Discharging Clinician: Jose Eduardo Ty Anticipated Discharge Date/Time: 05/08/24 16:19 Patient Disposition: Home, Self-Care Activity: follow weight bearing status Diet: regular Discharge Instructions: Follow-up with orthopedics and PCP within a week upon discharge. Advised to follow up the results of the knee aspiration with Ortho. Check blood pressure 1 to 2 times a day. Record and bring into your doctor for review. Call your doctor if your blood pressure is greater than 180/110 or less than 90/45. Walk with cane or other assist device. Take precautions to avoid falls. Rise slowly from a lying or sitting position. Pause before standing or walking. Contact your doctor or call 911 and come to the Emergency Room if you have any type of trauma, lightheadedness with standing or other worrisome symptoms. Avoid NSAIDs (ibuprofen, naproxen, Aleve). Tylenol is safe to take. Follow-up with your primary care provider in 1-2 weeks. Please call for appointment. Thank you for using [facility] for your health care needs. Patient Instructions: Antibiotic Form Patient Language: Angolan Stand Alone Forms: General Discharge Information Follow-up/Referrals: Baudilio Dawson MD [Physician] - Lb Adame MD [Primary Care Provider] - Discharge Medications: Continued Alive Women's Gummy Vitamin 200 mcg- 37.5 mg Tablet,Chewable 2 tablet PO DAILY sumatriptan succinate [Imitrex] 50 mg tablet See Rx Instructions PO .COMPLEX Qty: 9 2RF Rx Instructions: take 1 tab at onset of headache; if no relief may repeat 1 tab after at least 2 hrs; max = 4 tabs/24 hr PO metoprolol tartrate 50 mg tablet See Rx Instructions .ROUTE .COMPLEX Qty: 90 2RF Dose Instruction: TAKE 1 TABLET BY MOUTH EVERY DAY Rx Instructions: TAKE 1 TABLET BY MOUTH EVERY DAY losartan-hydrochlorothiazide 50-12.5 mg tablet See Rx Instructions .ROUTE .COMPLEX Qty: 90 2RF Dose Instruction: TAKE 1 TABLET BY MOUTH EVERY DAY Rx Instructions: TAKE 1 TABLET BY MOUTH EVERY DAY Date of admission: 05/06/24 10:50 Primary Care Provider: Lb Adame Admitting Provider: Dalton Srivastava Attending physician on admission: Dalton Srivastava Condition: Stable
--- NOTE | 2024-05-08 12:07 | PCPTNOTE ---
On 05/08/24, the student, ALEX Lowe, provided care and completed [facility] documentation on this patient. I have reviewed the student's documentation and agree with the findings.
[2024-05-08 14:00] VITALS: BP 131/76; PULSE 72; RESP 18; TEMP 36.5; O2SAT 98
== END 2024-05-08 16:55 | disposition home or self-care (01) ==
LOC: ANHED 08:02 → ANH3MEDSUR 17:14
PROVIDERS: Nurse Practitioner Family; Admitting Provider Internal Medicine; Emergency Provider Emergency Medicine; PCP Emergency Medicine; Visit Provider General Practice
DX: M25.561 Pain in right knee (principal); M25.461 Effusion, right knee; M17.11 Unilateral primary osteoarthritis, right knee; M71.21 Synovial cyst of popliteal space [Baker], right knee; M65.961 Unspecified synovitis and tenosynovitis, right lower leg; I10 Essential (primary) hypertension; M79.661 Pain in right lower leg; E55.9 Vitamin D deficiency, unspecified; Z78.0 Asymptomatic menopausal state; Z79.899 Other long term (current) drug therapy
CPT/HCPCS: 20610; 36415; 73502; 73562; 73700; 73723; 80053; 84550; 85027; 85652; 86140; 87641; 93970; 96372; 96374; 96375; 97110; 97161; 97165; 97530; 97535; 99285; A9270; A9577; G0378; J1650; J2060; J2270